=== PATIENT | male | born 1985 | race Caucasian/White ===

== ENCOUNTER 2019-03-30 18:55 | Emergency (ER) | payer MEDICAID, OTHER ==
[2019-03-30 18:59] VITALS: BP 152/90
[2019-03-30] MEDS ORDERED: SILVER SULFADIAZINE 1% CREAM 50 GM TP ONE (19:18)
[2019-03-30] MEDS ORDERED: BACITRACIN ZINC OINTMENT 15 GM TP ONE (19:19)
--- NOTE | 2019-03-30 19:22 | ER Document Report ---
HPI - HPI Time Seen by Provider: 03/30/19 19:05 Pain Level: 3 Notes: Patient is an otherwise healthy 33-year-old male presenting to the emergency department chief complaint of burn to his left palm. Patient reports he was at work and grabbed the handle of a frying neri that was hot. He reports this happened just prior to arrival. He reports his tetanus shot is up-to-date. Past Medical History - General Information source: Patient - Social History Smoking Status: Never Smoker Frequency of alcohol use: None Drug Abuse: None Family History: Reviewed & Not Pertinent - Medical History Medical History: Negative Surgical Hx: Negative - Immunizations Immunizations up to date: Yes Vertical Provider Document - CONSTITUTIONAL Notes: PHYSICAL EXAMINATION: GENERAL: Well-appearing, well-nourished and in no acute distress. HEAD: Atraumatic, normocephalic. EYES: Pupils equal round extraocular movements intact, conjunctiva are normal. ENT: Nares patent NECK: Normal range of motion LUNGS: No respiratory distress Musculoskeletal: Normal range of motion NEUROLOGICAL: Normal speech, normal gait. PSYCH: Normal mood, normal affect. SKIN: Mild erythema noted to the palmar surface of the left hand near digits #2, 3 and 4. No blistering noted. Course - Re-evaluation Re-evalutation: Patient has a first-degree burn to his left hand on the palmar surface. Patient is right-hand dominant. Patient will be given bacitracin ointment to apply to the area twice daily, he was given burn care instructions. Patient verbalized understanding and agreement with plan. The patient's emergency department workup and current diagnosis were explained to the patient and or family. Follow-up instructions were provided. Medications if prescribed were discussed. Instructions for when to return to the emergency department including specific worrisome symptoms were discussed with the patient and/or family. - Vital Signs Vital signs: Temp Pulse Resp BP Pulse Ox 98.1 F 87 18 152/90 H 97 03/30/19 18:58 03/30/19 18:58 03/30/19 18:58 03/30/19 18:58 03/30/19 18:58 Discharge - Discharge Clinical Impression: First degree burn Condition: Stable Disposition: HOME, SELF-CARE Additional Instructions: Patient is a 33-year-old male presenting with chief complaints of burn to his left hand. Patient reports he was at work when he grabbed a hold of a hot pot in burn to the palm of his hand. Patient reports tetanus is up-to-date. Solis The seriousness of a burn is not always obvious at first. Delayed tissue damage and secondary infection may occur despite proper treatment. Proper care is very important. A burn that is third-degree may need skin grafting. Most solis, however, are simply protected with dressings until healed. Keep the burn clean. If the dressing gets wet, remove it and blot the wound dry, then apply a fresh dressing. Dressings should be changed at least once daily. Soaks to remove crusting are usually started in about two days. Solis in certain areas require stretching to prevent disabling tightness. Your doctor will advise you about this. For pain control, you may frequently apply a hand towel that has been dipped in water with ice cubes. Do not apply ice directly to the burned areas. If any signs of infection occur (swelling, redness, increasing tenderness, red streaks, tender lumps in the armpit or groin above the burn, or fever), contact the doctor immediately. Referrals: TYRONE WOOTEN, [facility] [ALLIED HEALTH PROFESSIONAL] - Follow up as needed
== END 2019-03-30 20:02 | disposition home or self-care (01) ==
LOC: ER 18:55
DX: T23.152A Burn of first degree of left palm, initial encounter (principal); X19.XXXA Contact with other heat and hot substances, initial encounter; Y99.0 Civilian activity done for income or pay
CPT/HCPCS: 99283; J3490 ×2

== ENCOUNTER 2019-11-01 10:14 | Emergency (ER) | payer OTHER ==
[2019-11-01] MEDS ORDERED: HYDROMORPHONE HCL INJ/PF 2 MG/ML AMPULE IV ONE (10:39)
[2019-11-01] MEDS ORDERED: ONDANSETRON HCL INJ/PF 4 MG/2 ML SDV IV ONE (10:40)
--- NOTE | 2019-11-01 11:12 | ER Document Report ---
Entered by KRYSTAL RIOJAS SCRIBE 11/01/19 1049 Acting as scribe for:EULALIA MIRELES DO ED Fall - General Chief Complaint: Fall Stated Complaint: FALL/LEG INJURY Mode of Arrival: Ambulatory Information source: Patient Notes: This 34-year-old male patient presents to the emergency department today after falling through a roof today at work. Patient states the roof was about 10 feet high and he landed on his feet upright, leaning slightly on to a counter. Patient has left ankle/foot pain and swelling. Patient denies back pain or neck pain. Patient did not hit his head. Patient denies any other injuries. TRAVEL OUTSIDE OF THE [place] IN LAST 30 DAYS: No - Related data Allergies/Adverse Reactions: No Known Allergies Allergy (Unverified 11/01/19 12:57) Past Medical History - General Information source: Patient - Social History Smoking Status: Unknown if Ever Smoked Cigarette use (# per day): No Frequency of alcohol use: None Drug Abuse: None Lives with: Family Family History: Reviewed & Not Pertinent Patient has suicidal ideation: No Patient has homicidal ideation: No - Immunizations Immunizations up to date: Yes Review of Systems - Review of Systems Constitutional: No symptoms reported EENT: No symptoms reported Cardiovascular: No symptoms reported Respiratory: No symptoms reported Gastrointestinal: No symptoms reported Genitourinary: No symptoms reported Male Genitourinary: No symptoms reported Musculoskeletal: See HPI, Joint pain - left ankle. denies: Back pain, Deformity Skin: No symptoms reported Hematologic/Lymphatic: No symptoms reported Neurological/Psychological: No symptoms reported -: Yes All other systems reviewed and negative Physical Exam - Vital signs Vitals: Temp Pulse Resp BP Pulse Ox 98.4 F 107 H 20 143/101 H 100 11/01/19 10:37 11/01/19 10:37 11/01/19 10:37 11/01/19 10:37 11/01/19 10:37 - Notes Notes: Physical Exam: General: Alert, appears well. HEENT: Normocephalic. Atraumatic. PERRL. Extraocular movements intact. Oropharynx clear. Neck: Supple. Non-tender. Respiratory: No respiratory distress. Clear and equal breath sounds bilaterally. Cardiovascular: Regular rate and rhythm. Abdominal: Normal Inspection. Non-tender. No distension. Normal Bowel Sounds. Back: No gross abnormalities. No midline bony tenderness crepitus, or step-off. Extremities: Moves all four extremities. Upper extremities: Normal inspection. Normal ROM. Lower extremities: Soft tissue swelling without obvious deformity to left foot and ankle. Tenderness with palpation of the left ankle and foot. Sensation intact and brisk distal capillary refill. No abnormalities of the knee. Neurological: Normal cognition. AAOx4. Normal speech. Psychological: Normal affect. Normal Mood. Skin: Warm. Dry. Normal color. Course - Re-evaluation Re-evalutation: 11/01/19 12:07 MDM Pleasant 34 year old fell thru a roof shortly prior to arrival. Pain is controlled here after IV medicine. I have just discussed with Dr. Mkceon who has graciously agreed to see and evaluate in the ED. - Vital Signs Vital signs: Temp Pulse Resp BP Pulse Ox 98.4 F 107 H 20 143/101 H 100 11/01/19 10:37 11/01/19 10:37 11/01/19 10:37 11/01/19 10:37 11/01/19 10:37 - Diagnostic Test Radiology reviewed: Image reviewed, Reports reviewed Procedures - Immobilization Left Lower Leg Time completed: 13:30 Pre-Proc Neuro Vasc Exam: Normal Immobilizer type: Ankle stirrup, Crutches Performed by: PCT - Pt seen s/p splint and is to see Tommy in follow up. Post-Proc Neuro Vasc Exam: Normal Alignment checked and good: Yes Discharge - Discharge Clinical Impression: Fracture of distal end of tibia Qualifiers: Encounter type: initial encounter Fracture type: closed Fracture morphology: unspecified fracture morphology Laterality: left Qualified Code(s): S82.302A - Unspecified fracture of lower end of left tibia, initial encounter for closed fracture Metatarsal bone fracture Qualifiers: Encounter type: initial encounter Metatarsal bone: second Fracture type: closed Fracture alignment: nondisplaced Laterality: left Qualified Code(s): S92.325A - Nondisplaced fracture of second metatarsal bone, left foot, initial encounter for closed fracture Condition: Good Disposition: HOME, SELF-CARE Instructions: Fractured Tibia ([facility]) Additional Instructions: Rest, ice and elevate left ankle/ foot. Return here for increasing pain/ other problems or concerns. Call the orthopedist in the am tomorrow in follow up. Prescriptions: Hydrocodone/Acetaminophen [[place]olliday 5-325 mg Tablet] 1 tab PO TID #12 tablet Hydrocodone/Acetaminophen [[place]olliday 5-325 mg Tabs (6 Tab/ER Disp)] 6 tab PO TID #1 dspk Forms: Smoking Cessation Education I personally performed the services described in the documentation, reviewed and edited the documentation which was dictated to the scribe in my presence, and it accurately records my words and actions.
--- NOTE | 2019-11-01 11:47 | RADIOLOGY REPORT (SQ) ---
EXAM DESCRIPTION: FOOT LEFT COMPLETE; ANKLE LEFT COMPLETE COMPLETED DATE/TIME: 11/01/2019 11:09 am REASON FOR STUDY: pain/ injury; fall/ pain/ injury COMPARISON: None. NUMBER OF VIEWS: Six views. TECHNIQUE: AP, lateral and oblique radiographic images acquired of the left ankle and left foot. LIMITATIONS: None. FINDINGS: MINERALIZATION: Normal. BONES: Small triangular fragment distal to the medial malleolus. JOINTS: No effusions. SOFT TISSUES: No soft tissue swelling. No foreign body. OTHER: No other significant finding. IMPRESSION: Avulsion fracture versus loose body medial aspect of the ankle joint. History indicates patient's pain is lateral. Clinical correlation is needed. TECHNICAL DOCUMENTATION: JOB ID: [id number] 2011 [employer]- All Rights Reserved Reading location - IP/workstation name: [email or web address]
--- NOTE | 2019-11-01 11:47 | RADIOLOGY REPORT (SQ) ---
EXAM DESCRIPTION: FOOT LEFT COMPLETE; ANKLE LEFT COMPLETE COMPLETED DATE/TIME: 11/01/2019 11:09 am REASON FOR STUDY: pain/ injury; fall/ pain/ injury COMPARISON: None. NUMBER OF VIEWS: Six views. TECHNIQUE: AP, lateral and oblique radiographic images acquired of the left ankle and left foot. LIMITATIONS: None. FINDINGS: MINERALIZATION: Normal. BONES: Small triangular fragment distal to the medial malleolus. JOINTS: No effusions. SOFT TISSUES: No soft tissue swelling. No foreign body. OTHER: No other significant finding. IMPRESSION: Avulsion fracture versus loose body medial aspect of the ankle joint. History indicates patient's pain is lateral. Clinical correlation is needed. TECHNICAL DOCUMENTATION: JOB ID: [id number] 2011 [employer]- All Rights Reserved Reading location - IP/workstation name: [email or web address]
[2019-11-01 15:08] VITALS: BP 150/96
--- NOTE | 2019-11-01 15:27 | RADIOLOGY REPORT (SQ) ---
EXAM DESCRIPTION: ANKLE LEFT COMPLETE COMPLETED DATE/TIME: 11/01/2019 1:57 pm REASON FOR STUDY: post splint COMPARISON: Same date 1057 hours NUMBER OF VIEWS: Three views. TECHNIQUE: AP, lateral, and oblique radiographic images acquired of the left ankle. LIMITATIONS: Overlying casting material obscures detail. FINDINGS: MINERALIZATION: Normal. BONES: Vertical posterior malleolar fracture partially visualized on lateral view. Ankle mortise has normal alignment. Tiny avulsion fracture at the medial malleolus is not optimally demonstrated due to overlying casting material. JOINTS: Small anterior joint effusion. SOFT TISSUES: No soft tissue swelling. No foreign body. OTHER: No other significant finding. IMPRESSION: Ankle mortise has good alignment. Posterior malleolar fracture and avulsion fracture at the medial malleolus not significantly changed. TECHNICAL DOCUMENTATION: JOB ID: [id number] 2010 [employer]- All Rights Reserved Reading location - IP/workstation name: [email or web address]
--- NOTE | 2019-11-01 16:03 | PDOC CONSULTATION ---
Consultation Consult Date: 11/01/19 Provider Consulted: CHI CARRANZA JR History of Present Illness Patient complains of: Left ankle pain History of Present Illness: PAULA PALOMARES is a 34 year old male who [place] fell through a roof one-story onto the ground landing on his left ankle and sustaining ankle pain and inability to ambulate. He had swelling immediately as well as severe pain that was aching in nature 8 out of 10 10 out of 10 with any motion or weightbearing and improved with rest. Worsened with motion. The patient denies associated injury, denies knee pain, denies loss of consciousness. He denies left lower extremity paresthesias. He presented to the emergency department where x-rays demonstrated a ankle fracture. Social History Lives with: Family Smoking Status: Unknown if Ever Smoked Family History Family History: Reviewed & Not Pertinent Parental Family History Reviewed: No Children Family History Reviewed: NA Sibling(s) Family History Reviewed.: NA Medication/Allergy Home Medications: Hydrocodone/Acetaminophen [[place] 5-325 mg Tablet] 1 tab PO TID #12 tablet 11/01/19 Hydrocodone/Acetaminophen [[place] 5-325 mg Tabs (6 Tab/ER Disp)] 6 tab PO TID #1 dspk 11/01/19 Allergies/Adverse Reactions: No Known Allergies Allergy (Unverified 11/01/19 12:57) Review of Systems Review of Systems: Constitutional: ABSENT: anorexia, chills, night sweats Cardiovascular: ABSENT: chest pain Respiratory: ABSENT: dyspnea Gastrointestinal: ABSENT: vomiting Genitourinary: ABSENT: dysuria Integumentary: ABSENT: rash Neurological: ABSENT: confusion, memory loss, numbness Psychiatric: ABSENT: hallucinations Hematologic/Lymphatic: ABSENT: easy bleeding All negative as above aside from that reported in the HPI and the following: Left ankle pain and swelling Physical Exam Vital Signs: Temp Pulse Resp BP Pulse Ox 98.1 F 107 H 16 150/96 H 92 11/01/19 15:03 11/01/19 15:03 11/01/19 14:42 11/01/19 15:03 11/01/19 15:03 Intake & Output 10/31/19 11/01/19 11/02/19 06:59 06:59 06:59 Weight 82.1 kg Physical Exam: General appearance: PRESENT: no acute distress, cooperative, well-nourished Head exam: PRESENT: atraumatic, normocephalic Eye exam: PRESENT: EOMI Ear exam: PRESENT: normal external ear exam Mouth exam: PRESENT: neck supple Neck exam: ABSENT: tracheal deviation Respiratory exam: PRESENT: symmetrical, unlabored. ABSENT: accessory muscle use, wheezes Pulses: PRESENT: normal radial pulses, normal dorsalis pedis pulse Vascular exam: PRESENT: normal capillary refill GI/Abdominal exam: ABSENT: distended, firm Extremities exam: PRESENT: full ROM of bilateral shoulders, elbows wrists, knees, hips and ankles without pain Musculoskeletal exam: PRESENT: full ROM, normal inspection of all 4 extremities aside from that noted below. Neurological exam: PRESENT: alert, awake, oriented to person, oriented to place, oriented to time Psychiatric exam: PRESENT: appropriate affect. ABSENT: agitated Focused psych exam: ABSENT: catatonic Skin exam: PRESENT: intact. ABSENT: dry All as above aside from that noted in the HPI and the following: Left lower extremity -Pulses 2+ distally -Compartments soft -Sensation grossly intact to L3-4-5 S1 -Motor grossly intact to EHL TA gastroc and quad - left ankle is swollen, tenderness to palpation medially and laterally. Gait is intact Results Impressions: Foot X-Ray 11/01/19 10:40 IMPRESSION: Avulsion fracture versus loose body medial aspect of the ankle joint. History indicates patient's pain is lateral. Clinical correlation is needed. Ankle X-Ray 11/01/19 14:44 IMPRESSION: Ankle mortise has good alignment. Posterior malleolar fracture and avulsion fracture at the medial malleolus not significantly changed. Assessment & Plan - Diagnosis (1) Trimalleolar fracture of left ankle Plan: With the medial fracture, normally displaced posterior malleolus fracture and medial clear space widening with tib-fib widening and syndesmotic disruption, the patient has sustained a trimalleolar ankle fracture equivalent -Fortunately at this time the medial malleolus fracture is very small, well reduced, as well as the posterior mall which is an ideal position. -I had a patient conversation explaining the importance of maintaining a good reduction in order to allow for ideal healing. At this time after discussing risks and benefits of multiple treatment options the patient is elected to proceed with nonoperative treatment in a splint. -A splint was applied in the emergency department and subsequent x-rays revealed excellent reduction with closure of the medial clear space and reduction of the tibiofibular syndesmosis. -Patient will follow with me in the office in approximately 10-14 business days for reevaluation and application of a cast. -May call me sooner with any acute changes questions or concerns
== END 2019-11-01 15:22 | disposition home or self-care (01) ==
LOC: ER 10:14
DX: S82.302A Unspecified fracture of lower end of left tibia, initial encounter for closed fracture (principal); S92.325A Nondisplaced fracture of second metatarsal bone, left foot, initial encounter for closed fracture; W13.2XXA Fall from, out of or through roof, initial encounter; Y99.0 Civilian activity done for income or pay
CPT/HCPCS: 73610; 73630; J1170; J2405

== ENCOUNTER 2019-11-14 11:21 | Day surgery (SDC) | payer OTHER ==
[~2019-11-14 11:21] MED LIST: SUCCINYLCHOLINE CHLORIDE INJ 200 MG/10 ML VIAL ONE
[2019-11-14] MEDS ORDERED: CEFAZOLIN SODIUM 2 GM in DEXTROSE 5%-WATER 100 ML IV PRN (11:40)
[2019-11-14] MEDS ORDERED: OXYCODONE HCL IR 5 MG TABLET PO ONE (11:45)
[2019-11-14] MEDS ORDERED: ACETAMINOPHEN 325 MG TABLET PO ONE (11:45)
[2019-11-14] MEDS ORDERED: OXYCODONE HCL SR 10 MG TABLET PO ONE (12:24)
[2019-11-14] MEDS ORDERED: ACETAMINOPHEN 325 MG TABLET ONE (12:24)
[2019-11-14] MEDS ORDERED: FENTANYL CITRATE INJ/PF 100 MCG/2 ML AMPUL ONE ×2 (12:57→14:26)
[2019-11-14] MEDS ORDERED: MIDAZOLAM 2 MG/2 ML INJ ONE (12:57)
[2019-11-14] MEDS ORDERED: ONDANSETRON HCL INJ/PF 4 MG/2 ML SDV ONE (12:57)
[2019-11-14] MEDS ORDERED: PROPOFOL INJ 200 MG/20 ML VIAL IV ONE (12:57)
[2019-11-14] MEDS ORDERED: DEXAMETHASONE SOD PHOSPHATE INJ 4 MG/1 ML VIAL ONE (12:57)
[2019-11-14] MEDS ORDERED: LIDOCAINE 1% INJ-PF (10 MG/ML) 30 ML SDV ONE (13:01)
[2019-11-14] MEDS ORDERED: BUPIVACAINE HCL 0.5 % INJ/PF 30 ML SDV ONE (13:01)
[2019-11-14] MEDS ORDERED: MEPERIDINE HCL/PF INJ 25 MG/1 ML DISP.SYRIN IV PRN (13:40)
[2019-11-14] MEDS ORDERED: ONDANSETRON HCL INJ/PF 4 MG/2 ML SDV IV PRN (13:40)
[2019-11-14] MEDS ORDERED: DIPHENHYDRAMINE HCL 50 MG/ML VIAL IV PRN (13:40)
[2019-11-14] MEDS ORDERED: OXYCODONE-ACETAMINOPHEN 5-325 MG TABLET PO PRN ×2 (13:40)
[2019-11-14] MEDS ORDERED: FENTANYL CITRATE INJ/PF 100 MCG/2 ML AMPUL IV PRN ×3 (13:40)
[2019-11-14] MEDS ORDERED: MORPHINE SULFATE 10 MG/ML INJ IV PRN (13:40)
[2019-11-14] MEDS ORDERED: PROMETHAZINE HCL INJ 25 MG/1 ML VIAL IV PRN ×2 (13:40)
[2019-11-14] MEDS ORDERED: MORPHINE SULFATE 10 MG/ML INJ ONE (14:45)
--- NOTE | 2019-11-14 14:49 | RADIOLOGY REPORT (SQ) ---
EXAM DESCRIPTION: NO CHG FLUORO; ANKLE LEFT COMPLETE COMPLETED DATE/TIME: 11/14/2019 2:32 pm REASON FOR STUDY: CLOSED REDUCTION LEFT ANKLE ASSISTED WITH FLUORO IN OR M84.372A STRESS FRACTURE, LEFT ANKLE, INITIAL ENCOUNTER FOR COMPARISON: Preoperative radiographs. FLUOROSCOPY TIME: 0.2 minutes 6 images saved to PACS. TECHNIQUE: Intra-operative images acquired during surgical procedure to evaluate progress. NUMBER OF IMAGES: 6 LIMITATIONS: None. FINDINGS: Patient undergoing closed reduction of ankle fracture. Please correlate with operative re port. IMPRESSION: IMAGE(S) OBTAINED DURING PROCEDURE. COMMENT: Quality ID 145: Final reports for procedures using fluoroscopy that document radiation exp osure indices, or exposure time and number of fluorographic images (if radiation exposure indices are not available) Please consult full operative report of the attending physician for description of the procedure. TECHNICAL DOCUMENTATION: JOB ID: [id number] 2010 [employer]- All Rights Reserved Reading location - IP/workstation name: [email or web address]
--- NOTE | 2019-11-14 14:49 | RADIOLOGY REPORT (SQ) ---
EXAM DESCRIPTION: NO CHG FLUORO; ANKLE LEFT COMPLETE COMPLETED DATE/TIME: 11/14/2019 2:32 pm REASON FOR STUDY: CLOSED REDUCTION LEFT ANKLE ASSISTED WITH FLUORO IN OR M84.372A STRESS FRACTURE, LEFT ANKLE, INITIAL ENCOUNTER FOR COMPARISON: Preoperative radiographs. FLUOROSCOPY TIME: 0.2 minutes 6 images saved to PACS. TECHNIQUE: Intra-operative images acquired during surgical procedure to evaluate progress. NUMBER OF IMAGES: 6 LIMITATIONS: None. FINDINGS: Patient undergoing closed reduction of ankle fracture. Please correlate with operative re port. IMPRESSION: IMAGE(S) OBTAINED DURING PROCEDURE. COMMENT: Quality ID [id number]: Final reports for procedures using fluoroscopy that document radiation exp osure indices, or exposure time and number of fluorographic images (if radiation exposure indices are not available) Please consult full operative report of the attending physician for description of the procedure. TECHNICAL DOCUMENTATION: JOB ID: [id number] 2010 [employer]- All Rights Reserved Reading location - IP/workstation name: [email or web address]
[2019-11-14] MEDS ORDERED: OXYCODONE HCL IR 5 MG TABLET ONE (15:29)
[2019-11-14 17:33] VITALS: BP 120/80
--- NOTE | 2019-11-19 09:00 | Operative Report ---
Operative Report DATE OF SURGERY: 11/14/19 PREOPERATIVE DIAGNOSIS: Left ankle trimalleolar fracture equivalent, Maisonneuve type syndesmotic injury POSTOPERATIVE DIAGNOSIS: Left ankle trimalleolar fracture equivalent, Maisonneuve type syndesmotic injury OPERATION: Left ankle closed reduction, percutaneous fixation with a tight rope suture button. SURGEON: CHI CARRANZA JR ANESTHESIA: Other COMPLICATIONS: None ESTIMATED BLOOD LOSS: 5 cc PROCEDURE: The patient was brought to the operating suite and laid supine on the operating table. They were placed under general anesthesia and after adequate anesthesia the left lower extremity was prepped and draped in standard sterile fashion. The patient received 2 g of Ancef preoperatively. Prior to making incision, fluoroscopy was utilized in order to evaluate the fracture pattern and syndesmotic disruption. The posterior malleolus fracture was stable and nondisplaced. We made the decision not to proceed with formal fixation of the posterior malleolus. A timeout was performed and under fluoroscopic guidance a large pointed bone reduction forcep was placed in an ideal position on the medial and lateral malleolus. With the syndesmosis reduced and clamped the ankle was stressed and evaluated under fluoroscopy. This reduction showed appropriate closure of the medial clear space and syndesmotic widening. We then utilized the points of the forceps as a guide for placing our K wire. This was placed through all 4 cortices and confirmed on fluoroscopic. After this stab incisions were made over the K wire entry and exit and the K wire was overdrilled and a syndesmotic tight rope was placed and tightened. The bones forcep was then removed. We again confirmed positioning under fluoroscopy and appropriate reduction with stress. Final x-rays were taken, extra tight rope suture was cut, and the wound was copiously irrigated with sterile saline solution. Following this a 3-0 Vicryl was used to close the skin in a [id number] fashion followed by Xeroform 4 x 4's and a compressive Jose D wrap, finally placing the patient back in his cam walker boot. Patient was then a wakened from anesthesia and was for to the PACU in stable condition. He will be remaining nonweightbearing until healing.
--- NOTE | 2019-11-19 09:00 | Discharge Summary ---
Discharge Summary (SDC) - Discharge Final Diagnosis: Trimalleolar ankle fracture equivalent Date of Surgery: 11/14/19 Discharge Date: 11/14/19 Condition: Stable Forms: ASU Anesthesia D/C Instruction, Discharge POC-Surgical Service Treatment or Instructions: No alcohol, no driving, no legal decisions, or activities that require your full attention. Keep your follow-up appointment. You may elevate your leg. You may use ice. You may need a stool softener while taking certain pain medications. Go to the emergency room for difficulty breathing, chest pain or discomfort, bleeding that does not stop, if you have not urinated within 6-8 hours of discharge or are having difficuty urinating. Referrals: CHI CARRANZA JR, DO [ACTIVE PROVISIONAL STAFF] - 11/26/19 1:25 pm Respiratory Treatments at Home: Deep Breathing/Coughing Discharge Activity: No tub bath Home Care Assistance: Provided by Family Report the Following to Your Physician Immediately: Shortness of Breath, Increase in Pain, Fever over 101 Degrees, Unusual Bleeding, Swelling, Drainage- Foul Smelling, Numbness, IV Site Infection Signs
== END 2019-11-14 16:50 | disposition home or self-care (01) ==
LOC: OROUT 11:21
PROVIDERS: ATTEND Orthopaedic Surgery
DX: S82.852A Displaced trimalleolar fracture of left lower leg, initial encounter for closed fracture (principal); W13.2XXA Fall from, out of or through roof, initial encounter; Y92.69 Other specified industrial and construction area as the place of occurrence of the external cause; M25.572 Pain in left ankle and joints of left foot
CPT/HCPCS: 73610; 01462; 27818; C1713; J2250; J3490 ×2; J0690; J1100; J3010; J2270; J0330; J2405; J7060; J2704

== ENCOUNTER 2020-06-12 07:00 | Emergency (ER) | payer SELFPAY ==
[2020-06-12] MEDS ORDERED: KETOROLAC TROMETHAMINE 60 MG/2 ML SDV IM ONE (08:13)
--- NOTE | 2020-06-12 08:18 | ER Document Report ---
ED General - General Chief Complaint: Toothache Stated Complaint: MOUTH PAIN Time Seen by Provider: 06/12/20 07:25 TRAVEL OUTSIDE OF THE [place] IN LAST 30 DAYS: No - HPI Notes: Chief complaint: Toothache History of present illness: 35-year-old male presenting with tooth ache present for about 2 weeks. This is getting worse. No fever chills nausea vomiting. Eating and drinking normally. Has not seen a dentist in "years". Good general health. He is recently undergone a surgical procedure on his left leg for orthopedic injury. - Related Data Allergies/Adverse Reactions: No Known Allergies Allergy (Verified 11/14/19 13:03) Past Medical History - General Information source: Patient, [facility] Records - Social History Smoking Status: Current Every Day Smoker Chew tobacco use (# tins/day): No Frequency of alcohol use: None Drug Abuse: None Family History: Reviewed & Not Pertinent Patient has homicidal ideation: No - Past Medical History Cardiac Medical History: Denies: Hx Coronary Artery Disease, Hx Heart Attack, Hx Hypertension Pulmonary Medical History: Denies: Hx Asthma, Hx Bronchitis, Hx COPD, Hx Pneumonia Neurological Medical History: Denies: Hx Cerebrovascular Accident, Hx Seizures Endocrine Medical History: Denies: Hx Diabetes Mellitus Type 1, Hx Diabetes Mellitus Type 2 Renal/ Medical History: Denies: Hx Peritoneal Dialysis Musculoskeletal Medical History: Denies Hx Arthritis Past Surgical History: Reports: Hx Orthopedic Surgery - L leg - Immunizations Immunizations up to date: Yes Hx Diphtheria, Pertussis, Tetanus Vaccination: Yes Review of Systems - Review of Systems Notes: Constitutional: Negative for fever. HENT: Negative for sore throat. No difficulty swallowing. Eyes: Negative for visual changes. Cardiovascular: Negative for chest pain. Respiratory: Negative for shortness of breath. Gastrointestinal: Negative for abdominal pain, vomiting or diarrhea. Genitourinary: Negative for dysuria. Musculoskeletal: Negative for back pain. Skin: Negative for rash. Neurological: Negative for headaches, weakness or numbness. 10 point ROS negative except as marked above and in HPI. Physical Exam - Vital signs Vitals: Temp Pulse Resp BP Pulse Ox 97.5 F 96 20 165/83 H 96 06/12/20 07:17 06/12/20 07:17 06/12/20 07:17 06/12/20 07:17 06/12/20 07:17 - Notes Notes: GENERAL: Somewhat obese male approximately stated age appearing in no acute distress. SKIN: Good turgor no rashes. HEAD: Normocephalic atraumatic. EYES: PERRLA. EOMI. Conjunctivae and sclerae clear. Mouth/throat: Deep decay of mandibular second molar on the left with mild surrounding edema of the gum. No stridor, no drooling. Normal phonation. Patient opens and closes jaw without difficulty. NECK: Supple. No masses or thyromegaly. No adenopathy. Carotids 2+ without bruits. No JVD. BACK: Symmetrical without tenderness. CHEST: Respirations unlabored. Breath sounds clear and symmetrical. HEART: Regular rhythm. No murmur gallop or rub. ABDOMEN: Soft nontender without masses, organomegaly or rebound. Bowel sounds normally active. No bruits. EXTREMITIES: No edema. No calf tenderness. Cap refill less than 1.5 seconds. Dorsalis pedis and posterior tibial pulses 3+ and symmetrical. NEUROLOGICAL: Alert and oriented x3. Nonfocal. PSYCHIATRIC: Appropriate affect. Course - Re-evaluation Re-evalutation: 06/12/20 08:16 Toradol IM. Outpatient dental referral. Advised to stop smoking. He will also need follow-up on his blood pressure elevation. - Vital Signs Vital signs: Temp Pulse Resp BP Pulse Ox 97.5 F 96 20 165/83 H 96 06/12/20 07:17 06/12/20 07:17 06/12/20 07:17 06/12/20 07:17 06/12/20 07:17 Discharge - Discharge Clinical Impression: Dental abscess Condition: Stable Disposition: HOME, SELF-CARE Instructions: Toothache ([facility]) Prescriptions: Amoxicillin 1 tab PO TID #30 tab Naproxen 500 mg PO BID PRN 7 Days #14 tablet PRN Reason: Forms: Smoking Cessation Education, Elevated Blood Pressure Referrals: [facility] [Provider Group] - Follow up as needed
[2020-06-12 09:13] VITALS: BP 137/87
== END 2020-06-12 09:11 | disposition home or self-care (01) ==
LOC: ER 07:00
DX: K04.7 Periapical abscess without sinus (principal); K08.89 Other specified disorders of teeth and supporting structures; F17.200 Nicotine dependence, unspecified, uncomplicated
CPT/HCPCS: 99283; 96372; J1885